=== PATIENT | female | born 1960 | race Caucasian/White ===

== ENCOUNTER → 2017-09-19 | Outpatient (CLI) | payer SELFPAY | LOC: WOUNDCARE 12:27 | PROVIDERS: ATTEND Surgery | DX: E11.621 Type 2 diabetes mellitus with foot ulcer (principal); L97.511 Non-pressure chronic ulcer of other part of right foot limited to breakdown of skin; T65.222A Toxic effect of tobacco cigarettes, intentional self-harm, initial encounter; I73.1 Thromboangiitis obliterans [Buerger's disease] | CPT/HCPCS: 99204 ==

== ENCOUNTER → 2017-11-16 | Outpatient (CLI) | payer OTHER ==
--- NOTE | 2017-11-16 14:36 | Diagnostic Imaging Report ---
PROCEDURE: US left lower extremity venous. TECHNIQUE: Multiple real-time grayscale images were obtained over the left lower extremity in various projections. Additional duplex Doppler and color Doppler images were also obtained. INDICATION: Left leg edema. FINDINGS: There is no evidence of a left lower extremity DVT. Left lower extremity deep venous system demonstrates normal compressibility with normal response to augmentation and Valsalva. There is a complex fluid collection in the popliteal fossa suggestive of a complex Serna's cyst. Complex fluid does extend inferiorly into the upper calf, likely owing to a partially ruptured Seran's cyst. This measures approximately 14.1 x 3.5 x 2.9 cm. IMPRESSION: 1. No evidence of left lower extremity DVT. 2. Partially ruptured complex Serna's cyst. Dictated by: Dictated on workstation # [id number]
== END ==
LOC: RAD 12:52
PROVIDERS: ATTEND Internal Medicine
DX: M66.0 Rupture of popliteal cyst (principal)

== ENCOUNTER → 2018-08-20 | Outpatient (CLI) | payer MEDICAID ==
[~2018-08-20] MED LIST: REGADENOSON 0.4 MG/5 ML SYR (LEXISCAN) IV ONE
[2018-08-20] MEDS: CATHETER FLUSH 10 ML SYR IV PRN ×2 (07:06→08:10)
[2018-08-20 08:08] VITALS: BP 145/86
--- NOTE | 2018-08-20 13:00 | STRESS TEST ---
DATE OF SERVICE: 08/20/2018 NUCLEAR MYOVIEW REPORT REFERRING PHYSICIAN: Dr. Medina. SUMMARY: The patient was injected with 10.78 mCi of technetium-99 Myoview and the resting images were obtained with peak stress level, a 32.9 mCi of technetium-99 Myoview were injected and the stress images were obtained. The resting and stress images were reviewed and compared in the short axis, horizontal long axis, and vertical long axis views. Review of the images showed good radiotracer uptake with no significant ischemia or infarction. SSS is 1, SDS 1, TID value 1.05. On the gated images, the left ventricle appeared to be in normal size with normal contractility. Calculated ejection fraction 71%, the test was supervised by Dr. Medina. CONCLUSION: 1. No ischemia or infarction on SPECT images. 2. Normal left ventricular size with normal contractility. Calculated ejection fraction 71%. Job ID: [id number] DocumentID: [id number] Dictated Date: 08/20/2018 11:47:52 Captain Room Service Date: 08/20/2018 13:00:03 Dictated By: RAMIRO LEPE MD
== END ==
LOC: CARD 06:34
PROVIDERS: ATTEND Internal Medicine
DX: R07.9 Chest pain, unspecified (principal); R53.83 Other fatigue
CPT/HCPCS: 78452; 93017

== ENCOUNTER → 2019-10-21 | Outpatient (CLI) | payer MEDICAID ==
--- NOTE | 2019-10-21 16:49 | Diagnostic Imaging Report ---
EXAMINATION: US Venous Lower Ext Dago. TECHNIQUE: Multiple real-time grayscale images were obtained over the lower extremities in various projections, bilaterally. Additional duplex Doppler and color Doppler images were also obtained. HISTORY: Swelling FINDINGS: No comparison available. The bilateral common femoral veins, deep femoral veins, superficial femoral veins and popliteal veins are patent with normal aden scale and doppler appearance. There is normal respiratory variation and augmentation. IMPRESSION: 1. No DVT of either lower extremity. Dictated by: Dictated on workstation # [id number]
== END ==
LOC: RAD 15:21
PROVIDERS: ATTEND Nurse Practitioner Family
DX: R60.1 Generalized edema (principal)
CPT/HCPCS: 93970

== ENCOUNTER → 2020-11-20 | Outpatient (CLI) | payer MEDICAID ==
[~2020-11-20] VITALS: Ht 165 cm; Wt 79.0 kg
[2020-11-20] MEDS: CATHETER FLUSH 10 ML SYR IV PRN ×2 (07:07→08:09)
[2020-11-20 08:06] VITALS: BP 170/91
--- NOTE | 2020-11-25 22:46 | STRESS TEST ---
DATE OF SERVICE: 11/20/2020 RESTING AND POST REGADENOSON TECHNETIUM-99M TETROFOSMIN SPECT CT IMAGING ORDERING PHYSICIAN: Dr. Medina. CLINICAL DIAGNOSIS: Chest discomfort. Baseline images were carried out after injection of 10.18 mCi of technetium-99m Tetrofosmin. This was followed by 0.4 mg regadenoson and 30.3 mCi of technetium-99m Tetrofosmin under Dr. Medina's supervision. The electrocardiographic portion of the study is reported separately by Dr. Medina. Review of images at rest and following stress does not indicate any significant perfusion defects consistent with significant myocardial ischemia or infarction. Gated images show normal global left ventricular systolic function with normal regional wall motion. Left ventricular ejection fraction is calculated to be 77%. Left ventricular end diastolic volume is 33 mL. CONCLUSIONS: 1. No evidence of any significant myocardial ischemia or infarction on this study. 2. Normal global left ventricular systolic function with a calculated ejection fraction of 77%. Job ID: [id number] DocumentID: [id number] Dictated Date: 11/25/2020 20:24:51 Antique Collector Date: 11/25/2020 22:45:53 Dictated By: HOLLIE PÉREZ MD, MA, FACP, FACC,
== END ==
LOC: CARD 07:00
PROVIDERS: ATTEND Nurse Practitioner Family
DX: R07.89 Other chest pain (principal)
CPT/HCPCS: 78452; 93017